=== PATIENT | female | born 1940 | race Caucasian/White ===

== ENCOUNTER 2018-09-23 10:02 | Emergency (ER) | payer OTHER ==
[~2018-09-23] VITALS: Ht 157.5 cm; Wt 64.4 kg
[2018-09-23 10:14] VITALS: BP_SYST 133
[2018-09-23 10:57] LABS: BASOPHILS # (AUTO) 0.1 K/uL (0.0-0.2); BASOPHILS % (AUTO) 0.5 % (0.0-2.0); EOSINOPHILS % (AUTO) 0.3 % (0.0-4.0); HEMATOCRIT 40.2 % (36-48); HEMOGLOBIN 13.6 g/dL (12.0-16.0); LYMPHOCYTES # (AUTO) 0.8 K/uL (1.0-5.5); LYMPHOCYTES % (AUTO) 6.3 % (20.5-51.5); MEAN CORPUSCULAR HEMOGLOBIN 32 pg (27-31); MEAN CORPUSCULAR HGB CONC 34 % (32-36); MEAN CORPUSCULAR VOLUME 94 fL (79.0-98.0); MONOCYTES # (AUTO) 0.8 K/uL (0.0-1.0); MONOCYTES % (AUTO) 5.8 % (1.7-9.3); NEUTROPHILS # (AUTO) 11.4 K/uL (1.8-7.7); NEUTROPHILS % (AUTO) 87.1 % (40.0-70.0); PLATELET COUNT (AUTO) 191 K/uL (130-430); RED BLOOD CELL COUNT(AUTO) 4.28 MIL/uL (4.2-6.2); RED CELL DISTRIBUTION WIDTH 13.3 % (9.0-15.0); WHITE BLOOD COUNT (AUTO) 13.1 K/uL (4.8-10.8)
[2018-09-23 11:10] LABS: ANION GAP 7 (5-15); CHLORIDE 105 mmol/L (98-107); CREATININE 1.09 mg/dL (0.55-1.30); GLUCOSE 140 mg/dL (70-99); POTASSIUM 5.2 mmol/L (3.5-5.1); SODIUM SERUM 139 mmol/L (136-145); UREA NITROGEN, BLOOD 34 mg/dL (8-21)
[2018-09-23 11:14] LABS: INR 0.9 (0.8-1.2); PROTHROMBIN TIME 9.4 SECS (9.5-12.5)
[2018-09-23 11:15] LABS: ALANINE AMINOTRANSFERASE 31 U/L (12-78); ALBUMIN 3.9 g/dL (3.4-4.8); ASPARTATE AMINOTRANSFERASE 21 U/L (10-37); TOTAL BILIRUBIN 0.3 mg/dL (0.0-1.0)
[2018-09-23 11:16] LABS: ALCOHOL, BLOOD < 3 mg/dL (<10)
[2018-09-23 13:13] VITALS: BP_SYST 129
== END 2018-09-23 13:08 | disposition home or self-care (01) ==
LOC: SED 10:02
DX: R55 Syncope and collapse (principal); F43.0 Acute stress reaction; F41.9 Anxiety disorder, unspecified; E78.5 Hyperlipidemia, unspecified; M19.90 Unspecified osteoarthritis, unspecified site; I10 Essential (primary) hypertension; Z85.038 Personal history of other malignant neoplasm of large intestine; Z90.710 Acquired absence of both cervix and uterus
CPT/HCPCS: 36415; 70450; 71045; 80053; 81002; 84484; 85025; 85610; 85730; 99284; G0482